=== PATIENT | female | born 1995 | race Asian ===

== ENCOUNTER 2023-07-12 10:24 | Inpatient (IN) ==
[2023-07-12] MEDS ORDERED: Lidocaine 1% VIAL 10 MG/ML 30 ML VIAL INJ PRN (10:53)
[2023-07-12] MEDS: Penicillin G Potassium IV 5,000,000 UNITS in NS 0.9% 100 ml BAG 100 ML IVPB ONE (11:25)
[2023-07-12 11:46] LABS: ABS Basophils 0.1 10^3/uL (0.0-0.1); ABS Eosinophils 0.1 10^3/uL (0.0-0.5); ABS Lymphocytes 1.8 10^3/uL (1.0-4.8); ABS Monocytes 0.8 10^3/uL (0.0-0.9); ABS Neutrophils 9.3 10^3/uL (1.5-7.6); ABS Nucleated RBC 0.01 10^3/ul; Eosinophil % 0.4 %; Hematocrit 35.8 % (35-45); Hemoglobin 12.1 g/dL (11.5-14.3); Lymphocyte % 14.7 %; Mean Corpuscular Hgb Conc 33.8 g/dL (31-36); Mean Corpuscular Volume 88.9 fL (80-97); Mean Platelet Volume 10.9 fL (7.5-11.2); Nucleated Red Blood Cells % 0.1 %/100WBC (0.0-0.8); Platelet Count 166 10^3/uL (150-450); Red Blood Count 4.03 10^6/uL (3.63-4.92); Red Cell Distribution Width 13.2 % (12-17)
[2023-07-12 11:51] LABS: Urine Appearance Clear; Urine Bilirubin Negative (Negative); Urine Blood Negative (Negative); Urine Color Light-Yellow; Urine Glucose Negative (Negative); Urine Ketones Negative (Negative); Urine Nitrite Negative (Negative); Urine Protein Negative (Negative); Urine Specific Gravity 1.014 (1.002-1.030); Urine Urobilinogen Negative (Negative); Urine pH 6.5 (5.0-8.0)
[2023-07-12 12:16] LABS: Urine Benzodiazepine Screen None Detected (None Detect); Urine Cannabinoids Screen None Detected (None Detect); Urine Opiates Screen None Detected (None Detect)
[2023-07-12] MEDS: Oxytocin in LR 20,000 MILLI.UNIT/1,000 ML BAG IV SCH (13:35)
[2023-07-12] MEDS: Penicillin G Potassium IV 3,000,000 UNITS in NS 0.9% 100 ml BAG 100 ML IVPB SCH (16:02)
[2023-07-12] MEDS: OBEPIDURAL (200 ML) 200 ML EPIDURAL SCH (16:10)
[2023-07-12] MEDS ORDERED: Phenylephrine 40 mcg/mL 10mL (400mcg) SYRINGE IV PUSH PRN ×2 (16:22)
[2023-07-12] MEDS ORDERED: Sodium Citrate/Citric Acid LIQ 15 ML UDC PO PRN (16:22)
[2023-07-12 19:18] LABS: ABS Basophils 0.1 10^3/uL (0.0-0.1); ABS Lymphocytes 2.5 10^3/uL (1.0-4.8); ABS Neutrophils 17.1 10^3/uL (1.5-7.6); ABS Nucleated RBC 0.03 10^3/ul; Hemoglobin 11.7 g/dL (11.5-14.3); Lymphocyte % 12.2 %; Mean Corpuscular Hemoglobin 29.5 pg (27-33); Mean Corpuscular Hgb Conc 32.6 g/dL (31-36); Mean Corpuscular Volume 90.5 fL (80-97); Mean Platelet Volume 11.1 fL (7.5-11.2); Nucleated Red Blood Cells % 0.1 %/100WBC (0.0-0.8); Platelet Count 215 10^3/uL (150-450); Red Blood Count 3.98 10^6/uL (3.63-4.92); Red Cell Distribution Width 13.4 % (12-17); White Blood Count 20.8 10^3/uL (3.8-11.8)
[2023-07-12] MEDS ORDERED: Phenylephrine IV 10 MG/ML 1 ml VIAL ONE (19:28)
[2023-07-12] MEDS ORDERED: Midazolam 2 mg/2 ml VIAL 1 mg/ml 2 ml VIAL (2 mg) ONE (19:40)
[2023-07-12] MEDS: ceFAZolin 2 GM PREMIX 2 GM/50 ML BAG ONE (19:54)
[2023-07-12] MEDS ORDERED: Lactated Ringers 1000 ml BAG 1,000 ML IV SCH (20:00)
[2023-07-13] MEDS: Oxytocin in LR 20,000 MILLI.UNIT/1,000 ML BAG IV SCH (07:26)
[2023-07-13 07:55] LABS: ABS Eosinophils 0.1 10^3/uL (0.0-0.5); ABS Lymphocytes 2.2 10^3/uL (1.0-4.8); ABS Monocytes 1.3 10^3/uL (0.0-0.9); ABS Neutrophils 13.1 10^3/uL (1.5-7.6); Eosinophil % 0.3 %; Hematocrit 22.2 % (35-45); Hemoglobin 7.5 g/dL (11.5-14.3); Lymphocyte % 13.4 %; Mean Corpuscular Hemoglobin 29.6 pg (27-33); Mean Corpuscular Hgb Conc 33.9 g/dL (31-36); Mean Corpuscular Volume 87.2 fL (80-97); Mean Platelet Volume 10.2 fL (7.5-11.2); Platelet Count 113 10^3/uL (150-450); Red Blood Count 2.55 10^6/uL (3.63-4.92); Red Cell Distribution Width 13.7 % (12-17); White Blood Count 16.8 10^3/uL (3.8-11.8)
[2023-07-13] MEDS: Dibucaine 1% OINT 28.35 GM TUBE PR PRN (09:40)
[2023-07-13] MEDS: Witch Hazel PAD JAR TOPICAL PRN (09:40)
[2023-07-13] MEDS: Iron Sucrose 200 MG in NS 0.9% 100 ml BAG 100 ML IVPB ONE (18:16)
[2023-07-14] MEDS: Bupivacaine 0.5% SDV PF 30ML VIAL ONE ×2 (06:22→06:23)
[2023-07-14] MEDS: Lidocaine 1% w EPI 1:200,000 SDV 30 ML VIAL ONE (06:22)
[2023-07-14] MEDS: Lactated Ringers 1000 ml BAG 1,000 ML IV SCH ×2 (06:22→06:25)
[2023-07-14] MEDS: Methylergonovine 0.2 mg AMPULE 1 ml AMP ONE (06:23)
[2023-07-14] MEDS: Metoclopramide 5 MG/ML VIAL (10 mg) ONE (06:23)
[2023-07-14] MEDS: Lidocaine 1.5% EPI 1:200,000 30 ML SDV ONE (06:23)
[2023-07-14] MEDS: Ondansetron 4 mg VIAL 2 MG/ML 2 ml VIAL ONE (06:23)
[2023-07-14] MEDS: Lactated Ringers 1000 ml BAG 1,000 ML IV ONE ×2 (06:24→06:25)
[2023-07-14] MEDS: Penicillin G Potassium IV 3,000,000 UNITS in NS 0.9% 100 ml BAG 100 ML IVPB SCH (06:24)
[2023-07-14] MEDS: Lidocaine 1% VIAL 10 MG/ML 30 ML VIAL ONE (06:24)
[2023-07-14] MEDS: Methylergonovine 0.2 mg AMPULE 1 ml AMP IM ONE (06:25)
[2023-07-14] MEDS: OBEPIDURAL (200 ML) 200 ML EPIDURAL ONE (06:25)
[2023-07-14 07:32] LABS: ABS Eosinophils 0.2 10^3/uL (0.0-0.5); ABS Lymphocytes 2.3 10^3/uL (1.0-4.8); ABS Monocytes 0.9 10^3/uL (0.0-0.9); ABS Neutrophils 11.6 10^3/uL (1.5-7.6); Eosinophil % 1.2 %; Hematocrit 22.8 % (35-45); Hemoglobin 7.7 g/dL (11.5-14.3); Lymphocyte % 15.5 %; Mean Corpuscular Hemoglobin 29.7 pg (27-33); Mean Corpuscular Hgb Conc 33.7 g/dL (31-36); Mean Corpuscular Volume 88.1 fL (80-97); Mean Platelet Volume 10.1 fL (7.5-11.2); Platelet Count 129 10^3/uL (150-450); Red Blood Count 2.59 10^6/uL (3.63-4.92); Red Cell Distribution Width 14.1 % (12-17); White Blood Count 15.1 10^3/uL (3.8-11.8)
[2023-07-14 08:46] VITALS: BP 106/68
== END 2023-07-14 19:00 | disposition home or self-care (01) | DRG 807 ==
LOC: MCHOBOUT 10:24 → MCHOB 10:57
PROVIDERS: ADMIT Midwife; ATTEND Midwife